=== PATIENT | male | born 1995 | race Caucasian/White ===

== ENCOUNTER → 2017-07-14 | Outpatient (CLI) | payer OTHER | LOC: FIMAGING 14:34 → EDSTATUS 14:36 | PROVIDERS: ATTEND Physician Assistant Medical | DX: Z13.828 Encounter for screening for other musculoskeletal disorder (principal) ==

== ENCOUNTER 2017-08-20 10:47 | Emergency (ER) | payer OTHER ==
[2017-08-20 10:55] VITALS: BP 128/74
[2017-08-20] MEDS ORDERED: IBUPROFEN 600 MG TAB PO ONE (11:01)
--- NOTE | 2017-08-20 11:09 | EDPHY ---
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 The ladder rotated and fell causing him to fall off the ladder landing on his left wrist on the stairs. Stairs were concrete. He did not lose consciousness. Complaint of left wrist pain with some generalized numbness and tingling to the hand. No other upper extremity complaints. REVIEW OF SYSTEMS: Negative except per HPI. General Appearance: Alert, no distress. Eyes: Pupils equal and round no icterus Respiratory: No respiratory distress Neurological: Awake, alert, no focal deficits. Skin: Warm and dry, no rashes. Musculoskeletal: Neck is supple nontender. Extremities are symmetrical, full range of motion, no edema. Left wrist with swelling, diffuse tenderness, snuffbox tenderness. Distal strength, sensation, cap refil normal throughout hand. Psychiatric: Patient is oriented X 3, there is no agitation. Medical/surgical history: Noncontributory Social history: works as a warehouse director. Smoking Status: Current some day smoker Constitutional: Initial Vital Signs Temperature (C) 36.7 C 08/20/17 10:50 Heart Rate 67 08/20/17 10:50 Respiratory Rate 16 08/20/17 10:50 Blood Pressure 128/74 H 08/20/17 10:50 O2 Sat (%) 96 08/20/17 10:50 O2 Delivery Mode Room Air Allergies/Adverse Reactions: amoxicillin Allergy (Verified 08/20/17 10:55) Home Medications: Medication Instructions Recorded NK [No Known Home Meds] 08/20/17 Medical Decision Making - Diagnostics Imaging Results: Imaging Impressions Wrist X-Ray 08/20/17 11:02 Impression: Normal left wrist series. Imaging: I viewed and interpreted images myself ED Course/Re-evaluation: X-ray negative for acute fracture although clinically suspicious for acute scaphoid injury. Thumb spica splint applied, I reviewed distal sensation movement circulation and splint is appropriate. Differential Diagnosis: Differential diagnosis includes but is not limited to wrist fracture, scaphoid fracture, other carpal bone injury, ligamentous injury. After evaluation no clear fracture on radiology but placed in thumb spica splint for possible scaphoid injury. Instructed patient to follow up with orthopedist or workman's Comp physician at the end of this coming week. Stable for discharge. - Data Points Medications Given: Discontinued Medications Ibuprofen (Motrin) 600 mg PO EDNOW ONE Stop: 08/20/17 11:02 Last Admin: 08/20/17 11:04 Dose: 600 mg Departure - Departure Disposition: Home, Routine, Self-Care Clinical Impression: Left wrist injury Qualifiers: Encounter type: initial encounter Qualified Code(s): S69.92XA - Unspecified injury of left wrist, hand and finger(s), initial encounter Condition: Good Instructions: Wrist Injury (ED) Additional Instructions: Keep splint on until follow-up with orthopedist or workmen's comp physician. Apply ice. Use ibuprofen and Tylenol for pain as needed. Return for any worsening symptoms. Referrals: Freeman Rizo MD [Primary Care Provider] - As per Instructions Radha Anaya MD [Medical Doctor] - As per Instructions
== END 2017-08-20 11:50 | disposition home or self-care (01) ==
LOC: CED 10:47
DX: S69.92XA Unspecified injury of left wrist, hand and finger(s), initial encounter (principal); F17.200 Nicotine dependence, unspecified, uncomplicated; W11.XXXA Fall on and from ladder, initial encounter; Y92.89 Other specified places as the place of occurrence of the external cause; Y99.0 Civilian activity done for income or pay; Y93.89 Activity, other specified
CPT/HCPCS: 73110-PO; L3908